=== PATIENT | male | born 1970 | race Caucasian/White ===

== ENCOUNTER 2019-10-05 18:25 | Emergency (ER) | payer BC ==
[~2019-10-05] VITALS: Ht 185.4 cm; Wt 120.2 kg
[~2019-10-05 18:25] MED LIST: NOHOMEMEDICATIONS
[2019-10-05] MEDS ORDERED: COZAAR100 MG PO (18:52)
[2019-10-05 19:19] LABS: ABSOLUTE BASOPHILS 0.1 thou/uL (0.0-0.2); ABSOLUTE EOSINOPHILS 0.1 thou/uL (0.0-0.7); ABSOLUTE LYMPHOCYTES 1.5 thou/uL (0.8-5.3); ABSOLUTE MONOCYTES 0.5 thou/uL (0.0-1.2); ABSOLUTE NEUTROPHILS 3.6 thou/uL (1.6-8.1); BASOPHILS 0.9 %; EOSINOPHILS 2.4 %; HEMATOCRIT 40.3 % (42.0-52.0); MCH 31.8 pg (26.0-34.0); MCHC 34.7 g/dL (28.0-37.0); MCV 91.6 fL (80.0-100.0); MONOCYTES 8.6 %; MPV 8.8 fl. (7.2-11.1); NUCLEATED RBCS 0 /100WBC; PLATELET COUNT* 179 thou/uL (150-400); POLYS 62.1 %; RDW-CV 14.1 % (10.5-14.5); WBC 5.8 thou/uL (4.0-11.0)
[2019-10-05 19:24] LABS: CALCIUM 8.2 mg/dL (8.5-10.1); POTASSIUM 3.8 mmol/L (3.5-5.1)
[2019-10-05 19:35] LABS: ALBUMIN 3.6 g/dL (3.4-5.0); TOTAL BILIRUBIN 0.3 mg/dL (<0.1-1.0); TOTAL PROTEIN 7.3 g/dL (6.4-8.2)
[2019-10-05] MEDS ORDERED: ADULT LOW DOSE81 MG PO (19:51)
[2019-10-05] MEDS ORDERED: NORVASC5 M1 PO (19:51)
[2019-10-05 19:57] VITALS: BP 152/101
--- NOTE | 2019-10-06 13:11 | EKG ---
[place] [address] ELECTROCARDIOGRAM REPORT Name: AVI BOUCHER [id number] Admission: 10/05/19 Attend Phys: Discharge: 10/05/19 Date of : 68 Report #: [id number] THIS REPORT FOR: //name// [facility] ED Test Date: 2019-10-05 Test Time: 19:35:47 Pat Name: AVI BOUCHER Department: Room: Gender: M Clinical Account Liaison: [place] : 1970 Requested By: Dionisio Anand Order Number: [id number] MD: Mahin Forrest Measurements Intervals Spray Rate: 65 P: 46 [place]: 200 QRS: 0 QRSD: 144 T: 3 QT: 430 QTc: 448 Interpretive Statements Sinus rhythm Probable left atrial enlargement Right bundle branch block No previous ECG available for comparison Electronically Signed On 10-06-2019 13:11:49 [employer] by Mahin Forrest [email or web address] <ELECTRONICALLY SIGNED> By: Mahin Forrest MD, [facility] 10/06/19 1311 1935 34 Mahin Forrest MD, FACC /EPI
== END 2019-10-05 19:57 | disposition home or self-care (01) ==
LOC: M.ERS 18:25
PROVIDERS: Emergency Medicine
DX: I10 Essential (primary) hypertension (principal); Z91.013 Allergy to seafood; Z90.49 Acquired absence of other specified parts of digestive tract